=== PATIENT | male | born 1985 | race Caucasian/White ===

== ENCOUNTER 2021-05-30 17:25 | Emergency (ER) | payer OTHER ==
[2021-05-30 17:35] VITALS: BP 187/103; PULSE 57; TEMP 98; BMI 34.8
== END 2021-05-30 18:00 | disposition home or self-care (01) ==
LOC: JER 17:25
DX: Z11.52 Encounter for screening for COVID-19 (principal)
CPT/HCPCS: 99282-25; C9803-CS; U0003; U0005